=== PATIENT | male | born 1990 | race Caucasian/White ===

== ENCOUNTER 2016-12-17 20:30 | Emergency (ER) | payer MEDICAID ==
[2016-12-17 20:52] VITALS: BP 114/64
--- NOTE | 2016-12-17 21:26 | ED Physician Documentation ---
PD HPI BACK PAIN - Stated complaint Stated Complaint: BACK PAIN - Chief complaint Chief Complaint: Back Pain - History obtained from History obtained from: Patient - History of Present Illness Timing - onset: How many months ago (2) Timing - details: Abrupt onset, Intermittant Pain level now: 6 Location: Upper, Left Quality: Pain, Sharp Associated symptoms: No: Weakness, Numbness Improves with: Rest, Position Worsened by: Movement, Palpation Recently seen: Clinic (recently seen by dentist) - Additional information Additional information: while sliding on [place] 2 months ago, he came down hard while in sitting position, had sudden onset left upper back pain with popping sensation. Since then, he has had episodic left upper back pain, sometimes associated with focal swelling, and associated with tenderness to palpation and worsening with movement. He has not sought medical attention for this until this ED visit. Has taken ibuprofen 600mg without relief (this was recently prescribed by dentist) Review of Systems Cardiac: denies: Chest pain / pressure Respiratory: denies: Dyspnea, Cough GI: denies: Abdominal Pain Musculoskeletal: reports: Back pain PD PAST MEDICAL HISTORY - Past Medical History Past Medical History: No - Past Surgical History Past Surgical History: No - Present Medications Home Medications: Ambulatory Orders Medication Instructions Recorded Confirmed Cyclobenzaprine [Flexeril] 10 mg PO TID PRN #20 tablet 12/17/16 HYDROcod/ACETAM 5/325 [[place] 5/325] 1 - 2 ea PO Q6H PRN #15 tablet 12/17/16 Ibuprofen [Motrin] 600 mg PO Q8HR PRN 12/17/16 12/17/16 - Allergies Allergies/Adverse Reactions: Allergies Allergy/AdvReac Type Severity Reaction Status Date / Time Penicillins Allergy Edema Verified 12/17/16 20:53 - Social History Does the pt smoke?: Yes Smoking Status: Current every day smoker Does the pt drink ETOH?: No Does the pt have substance abuse?: Yes Substance Use and Type: Marijuana - Immunizations Immunizations are current?: Yes - POLST Patient has POLST: No PD ED PE NORMAL - Vitals Vital signs reviewed: Yes - General General: Alert and oriented X 3, No acute distress, Well developed/nourished - Neck Neck: No bony TTP - Cardiac Cardiac: RRR, No murmur - Respiratory Respiratory: No respiratory distress, Clear bilaterally - Back Back: No spinal TTP PD ED PE EXPANDED - Back Back visual: 1 - swelling (subtle fullness), tenderness Results - Vitals Vitals: Vital Signs - 24 hr 12/17/16 20:49 Temperature 36.3 C L Heart Rate 60 Respiratory 16 Rate Blood Pressure 114/64 O2 Saturation 100 Oxygen O2 Source Room air - Rads (name of study) left ribs xray with PA chest Radiology: Prelim report reviewed, See rad report PD MEDICAL DECISION MAKING - ED course Complexity details: reviewed results, re-evaluated patient, considered differential, d/w patient Departure - Departure Disposition: 01 Home, Self Care Clinical Impression: Back pain Condition: Good Instructions: ED Neck Back Pain General Follow-Up: [facility] [Provider Group] [facility] [Provider Group] Prescriptions: Cyclobenzaprine [Flexeril] 10 mg PO TID PRN #20 tablet PRN Reason: Spasms HYDROcod/ACETAM 5/325 [[place] 5/325] 1 - 2 ea PO Q6H PRN #15 tablet PRN Reason: Pain Discharge Date/Time: 12/17/16 23:26
[2016-12-17] MEDS ORDERED: HYDROcod/ACETAM 5/325 MG TABLET PO STA (21:39)
[2016-12-17] MEDS ORDERED: CYCLOBENZAPRINE 10 MG TABLET PO STA (21:40)
[2016-12-17] MEDS ORDERED: HYDROcod/ACETAM 5/325 MG TABLET ONE (21:48)
[2016-12-17] MEDS ORDERED: CYCLOBENZAPRINE 10 MG TABLET PO ONE (21:48)
--- NOTE | 2016-12-17 22:30 | XRAY Preliminary Report ---
Exam: XR Ribs w/PA Chest LT IMPRESSION: Normal chest and rib radiography. [facility] SITE ID: [id number]
--- NOTE | 2016-12-17 22:32 | XRAY Report ---
EXAM: LEFT RIB RADIOGRAPHY EXAM DATE: 12/17/2016 09:59 PM. CLINICAL HISTORY: Left posterior thoracic pain. COMPARISON: None. TECHNIQUE: 1 view of the chest and 2 views of the ribs. FINDINGS: Bones: Normal. No fracture or bone lesion. Lungs: No focal opacities. No pneumothorax. No pleural effusions. Mediastinum: Heart and mediastinal contours are unremarkable. Other: None. IMPRESSION: Normal chest and rib radiography. [facility] Referring Provider Line: [phone] SITE ID: [id number]
== END 2016-12-17 23:26 | disposition home or self-care (01) ==
LOC: ED 20:30
DX: M54.6 Pain in thoracic spine (principal); F17.200 Nicotine dependence, unspecified, uncomplicated
CPT/HCPCS: 71101; 99283; A9270

== ENCOUNTER 2017-02-24 14:13 | Outpatient (CLI) | payer MEDICAID ==
[2017-02-24 19:08] LABS: BASOPHILS % (AUTO) 0.3 %; EOSINOPHILS % (AUTO) 0.1 %; HCT - HEMATOCRIT 43.5 % (42.0-52.0); HGB - HEMOGLOBIN 14.3 g/dL (14.0-18.0); LYMPHOCYTES # (AUTO) 1.7 10^3/uL (1.5-3.5); LYMPHOCYTES % (AUTO) 26.8 %; MEAN CORPUSCULAR HEMOGLOBIN 28.9 pg (27.0-31.0); MEAN CORPUSCULAR HGB CONC 32.8 g/dL (32.0-36.0); MEAN CORPUSCULAR VOLUME 88.2 fL (80.0-94.0); MONOCYTES # (AUTO) 0.3 10^3/uL (0.0-1.0); MONOCYTES % (AUTO) 5.1 %; NEUTROPHILS # (AUTO) 4.3 10^3/uL (1.5-6.6); NEUTROPHILS % (AUTO) 67.7 %; NUCLEATED RED BLOOD CELLS AUTO 0.1 /100WBC; RED BLOOD COUNT 4.93 10^6/uL (4.70-6.10); RED CELL DISTRIBUTION WIDTH 13.2 % (12.0-15.0); UNCORRECTED WHITE BLOOD COUNT 6.3 x10^3/uL; WHITE BLOOD COUNT 6.3 x10^3/uL (4.8-10.8)
[2017-02-24 19:51] LABS: BILIRUBIN,TOTAL 1.3 mg/dL (0.2-1.0); BUN - BLOOD UREA NITROGEN 13 mg/dL (6-20); CALCIUM 9.2 mg/dL (8.5-10.3); CARBON DIOXIDE - CO2 26 mmol/L (21-32); CHLORIDE 103 mmol/L (101-111); CREATININE 0.9 mg/dL (0.6-1.2); GFR - MDRD 104 (>89); GLUCOSE 88 mg/dL (70-100); POTASSIUM 3.8 mmol/L (3.5-5.0); SODIUM 138 mmol/L (135-145); TOTAL PROTEIN 7.4 g/dL (6.7-8.2)
[2017-02-24 19:52] LABS: ALBUMIN/GLOBULIN RATIO 1.7 (1.0-2.2); CHOL/HDL RATIO 3.7 (<5.0); CHOLESTEROL 163 mg/dL; HDL CHOLESTEROL 44 mg/dL; LDL/HDL RATIO 2.3 (<3.6); TRIGLYCERIDES 96 mg/dL; VLDL CHOLESTEROL 19 mg/dL
== END 2017-02-24 14:14 | disposition home or self-care (01) ==
LOC: LAB.N 14:13
PROVIDERS: ATTEND Nurse Practitioner Gerontology
DX: Z13.9 Encounter for screening, unspecified (principal); Z11.3 Encounter for screening for infections with a predominantly sexual mode of transmission
CPT/HCPCS: 36415; 80053; 80061; 84443; 85025; 86780; 86803; 87389; 87491; 87591

== ENCOUNTER 2017-02-24 17:34 | Emergency (ER) | payer MEDICAID ==
--- NOTE | 2017-02-24 18:32 | ED Physician Documentation ---
PD HPI UPPER EXT INJURY - Stated complaint Stated Complaint: HAND INJURY - Chief complaint Chief Complaint: Trauma Ext - History obtained from History obtained from: Patient - History of Present Illness Location: Other (Right-handed gentleman punched a wooden beam earlier today because he was upset at something and has pain over the third MCP of the right hand. No other injuries.) Review of Systems Constitutional: reports: Reviewed and negative Cardiac: reports: Reviewed and negative Respiratory: reports: Reviewed and negative PD PAST MEDICAL HISTORY - Past Surgical History Past Surgical History: No - Present Medications Home Medications: Ambulatory Orders Medication Instructions Recorded Confirmed Cyclobenzaprine [Flexeril] 10 mg PO TID PRN #20 tablet 12/17/16 02/24/17 HYDROcod/ACETAM 5/325 [[place] 5/325] 1 - 2 ea PO Q6H PRN #15 tablet 12/17/16 Ibuprofen [Motrin] 600 mg PO Q8HR PRN 12/17/16 02/24/17 HYDROcod/ACETAM 5/325 [[place] 5/325] 1 - 2 ea PO Q6H PRN #10 tablet 02/24/17 - Allergies Allergies/Adverse Reactions: Allergies Allergy/AdvReac Type Severity Reaction Status Date / Time Penicillins Allergy Edema Verified 12/17/16 20:53 - Social History Does the pt smoke?: Yes Smoking Status: Current every day smoker Does the pt drink ETOH?: No Does the pt have substance abuse?: Yes - Immunizations Immunizations are current?: Yes - POLST Patient has POLST: No PD ED PE NORMAL - Vitals Vital signs reviewed: Yes - General General: Alert and oriented X 3, No acute distress - Extremities Extremities: Other (Tenderness and swelling of the right hand over the third MCP with limited range of motion of the third digit but no deformity. Normal neurovascular status at the tips of all the fingers.) - Neuro Neuro: Alert and oriented X 3, Normal speech Results - Vitals Vitals: Vital Signs - 24 hr 02/24/17 02/24/17 18:01 18:38 Temperature 36.4 C L Heart Rate 80 80 Respiratory 18 18 Rate Blood Pressure 136/73 H 119/62 O2 Saturation 100 10 L Oxygen O2 Source Room air - Rads (name of study) 3v R hand Radiology: EMP read contemporaneously (STS no frx) Departure - Departure Disposition: 01 Home, Self Care Clinical Impression: Contusion of right hand Qualifiers: Encounter type: initial encounter Qualified Code(s): S60.221A - Contusion of right hand, initial encounter Condition: Good Record reviewed to determine appropriate education?: Yes Instructions: ED Contusion Hand Prescriptions: HYDROcod/ACETAM 5/325 [[place] 5/325] 1 - 2 ea PO Q6H PRN #10 tablet PRN Reason: Pain Comments: Call your doctor to arrange a follow-up appointment, make the next available appointment. In the interim, return anytime if worse or if new symptoms develop. Your blood pressure was elevated today on check into the emergency department. This does not mean that you have hypertension, it is a common phenomenon to come to the emergency department and have elevated blood pressure. I recommend that you see your primary care physician within the week to have it rechecked when you are feeling better. Discharge Date/Time: 02/24/17 18:41
--- NOTE | 2017-02-24 18:38 | XRAY Preliminary Report ---
Exam: XR HAND 3 VIEW RT IMPRESSION: 1. Marked dorsal right hand swelling centered at the MCP joint. No radiopaque foreign bodies. 2. Normal alignment. No fracture. [facility] SITE ID: [id number]
[2017-02-24 18:39] VITALS: BP 119/62
--- NOTE | 2017-02-24 19:06 | XRAY Report ---
EXAM: RIGHT HAND RADIOGRAPHY EXAM DATE: 02/24/2017 06:13 PM. CLINICAL HISTORY: Pain. COMPARISON: None. TECHNIQUE: 3 views. FINDINGS: Bones: Normal. No fractures or bone lesions. Joints: Normal. No subluxations. Soft Tissues: Marked dorsal right hand swelling centered at the MCP joints. IMPRESSION: 1. Marked dorsal right hand swelling centered at the MCP joint. No radiopaque foreign bodies. 2. Normal alignment. No fracture. [facility] Referring Provider Line: [phone] SITE ID: [id number]
== END 2017-02-24 18:41 | disposition home or self-care (01) ==
LOC: ED 17:34
DX: S60.221A Contusion of right hand, initial encounter (principal); W22.8XXA Striking against or struck by other objects, initial encounter; F17.200 Nicotine dependence, unspecified, uncomplicated; R03.0 Elevated blood-pressure reading, without diagnosis of hypertension; Z13.9 Encounter for screening, unspecified; Z11.3 Encounter for screening for infections with a predominantly sexual mode of transmission
CPT/HCPCS: 36415; 80053; 80061; 84443; 85025; 86780; 86803; 87389; 87491; 87591; 99283

== ENCOUNTER 2017-06-18 14:00 | Emergency (ER) | payer MEDICAID ==
[2017-06-18 14:18] VITALS: BP 116/56
--- NOTE | 2017-06-18 14:41 | XRAY Report ---
EXAM: RIGHT HAND RADIOGRAPHY EXAM DATE: 06/18/2017 02:28 PM. CLINICAL HISTORY: Right hand injury. COMPARISON: 02/24/2017. TECHNIQUE: 3 views. FINDINGS: Bones: Normal. No fractures or bone lesions. Joints: Normal. No subluxations. Soft Tissues: Normal. No soft tissue swelling. IMPRESSION: Normal hand radiography. [facility] Referring Provider Line: [phone] SITE ID: [id number]
--- NOTE | 2017-06-18 14:57 | ED Physician Documentation ---
PD HPI UPPER EXT INJURY - Stated complaint Stated Complaint: R HAND INJ - Chief complaint Chief Complaint: Ext Problem - History obtained from History obtained from: Patient - History of Present Illness Location: Right (Punching wooden boards 5 days ago trying to break thumb and has persistent pain in the area of the third and fourth metacarpals. No other injury.) Review of Systems Constitutional: reports: Reviewed and negative Nose: reports: Reviewed and negative Throat: reports: Reviewed and negative PD PAST MEDICAL HISTORY - Past Medical History Past Medical History: No - Past Surgical History Past Surgical History: No - Present Medications Home Medications: Ambulatory Orders Medication Instructions Recorded Confirmed HYDROcod/ACETAM 5/325 [[place] 5/325] 1 - 2 ea PO Q6H PRN #10 tablet 06/18/17 - Allergies Allergies/Adverse Reactions: Allergies Allergy/AdvReac Type Severity Reaction Status Date / Time Penicillins Allergy Edema Verified 12/17/16 20:53 - Social History Does the pt smoke?: Yes Smoking Status: Current every day smoker Does the pt drink ETOH?: No Does the pt have substance abuse?: Yes - Immunizations Immunizations are current?: Yes - POLST Patient has POLST: No PD ED PE NORMAL - Vitals Vital signs reviewed: Yes - General General: Alert and oriented X 3, No acute distress - Extremities Extremities: Other (Swollen and tender over the right hand especially the third metacarpal head, but good range of motion. NVI in all the digits.) - Neuro Neuro: Alert and oriented X 3, Normal speech Results - Vitals Vitals: Vital Signs - 24 hr 06/18/17 14:16 Temperature 36.6 C Heart Rate 85 Respiratory 16 Rate Blood Pressure 116/56 L O2 Saturation 98 Oxygen O2 Source Room air - Rads (name of study) 3v R hand Radiology: EMP read contemporaneously (NAD) Departure - Departure Disposition: 01 Home, Self Care Clinical Impression: Contusion of right hand Qualifiers: Encounter type: initial encounter Qualified Code(s): S60.221A - Contusion of right hand, initial encounter Condition: Good Record reviewed to determine appropriate education?: Yes Instructions: ED Contusion Hand Ch Prescriptions: HYDROcod/ACETAM 5/325 [[place] 5/325] 1 - 2 ea PO Q6H PRN #10 tablet PRN Reason: Pain Comments: Followup with your doctor in 1 week if not better.
== END 2017-06-18 15:19 | disposition home or self-care (01) ==
LOC: ED 14:00
DX: S60.221A Contusion of right hand, initial encounter (principal); W22.8XXA Striking against or struck by other objects, initial encounter; F17.200 Nicotine dependence, unspecified, uncomplicated
CPT/HCPCS: 99283

== ENCOUNTER 2017-06-23 11:46 | Emergency (ER) | payer OTHER, MEDICAID ==
[2017-06-23] MEDS ORDERED: HYDROcod/ACETAM 5/325 MG TABLET PO STA (12:17)
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
[2017-06-23 12:54] VITALS: BP 129/77
--- NOTE | 2017-06-23 13:06 | XRAY Preliminary Report ---
Exam: XR HAND 3 VIEW RT IMPRESSION: Persistent soft tissue swelling abutting the third metacarpal head without fracture, s ubluxation or radiopaque foreign body, nonspecific finding; and septic arthritis cannot be excluded b y the x-ray. [facility] SITE ID: [id number]
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
== END 2017-06-23 12:52 | disposition home or self-care (01) ==
LOC: ED 11:46
DX: S60.221A Contusion of right hand, initial encounter (principal); Y04.0XXA Assault by unarmed brawl or fight, initial encounter; F17.200 Nicotine dependence, unspecified, uncomplicated
CPT/HCPCS: 73130; 99282; 99283; A9270

== ENCOUNTER 2017-08-04 18:24 | Emergency (ER) | payer MEDICAID ==
--- NOTE | 2017-08-04 19:11 | XRAY Report ---
EXAM: RIGHT HAND RADIOGRAPHY EXAM DATE: 08/04/2017 07:00 PM. CLINICAL HISTORY: Right hand pain COMPARISON: None. TECHNIQUE: 3 views. FINDINGS: Bones: No fracture or focal bony lesion. Joints: No evidence of dislocation. Soft Tissues: No unexpected soft tissue findings. IMPRESSION: No evidence of fracture or dislocation. [facility] Referring Provider Line: [phone] SITE ID: [id number]
[2017-08-04] MEDS ORDERED: HYDROcod/ACETAM 5/325 MG TABLET PO STA (20:10)
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
[2017-08-04 20:21] VITALS: BP 119/75
== END 2017-08-04 20:25 | disposition home or self-care (01) ==
LOC: ED 18:24
DX: S63.91XA Sprain of unspecified part of right wrist and hand, initial encounter (principal); Y04.0XXA Assault by unarmed brawl or fight, initial encounter; F17.200 Nicotine dependence, unspecified, uncomplicated
CPT/HCPCS: 29125; 73130; 99283; A9270

== ENCOUNTER 2017-09-02 15:23 | Outpatient (CLI) | payer MEDICAID | END 2017-09-02 15:24 | LOC: LAB.N 15:23 | PROVIDERS: ATTEND Nurse Practitioner Gerontology | DX: M10.9 Gout, unspecified (principal) | CPT/HCPCS: 36415; 84550 ==

== ENCOUNTER 2017-12-11 20:00 | Emergency (ER) | payer MEDICAID ==
[2017-12-11 20:05] VITALS: BP 115/63
--- NOTE | 2017-12-11 20:18 | ED Physician Documentation ---
PD HPI LOWER EXT INJURY - Stated complaint Stated Complaint: R ANKLE PX/INJ - Chief complaint Chief Complaint: Ext Problem - History obtained from History obtained from: Patient - History of Present Illness PD HPI LOW EXT INJURY LOCATION: Right, Ankle (He hits the right medial malleolus on a bar while skateboarding a few days ago and has persistent pain there but is able to walk. No other injuries.) Review of Systems Constitutional: reports: Reviewed and negative Cardiac: reports: Reviewed and negative Respiratory: reports: Reviewed and negative PD PAST MEDICAL HISTORY - Past Surgical History Past Surgical History: No - Allergies Allergies/Adverse Reactions: Allergies Allergy/AdvReac Type Severity Reaction Status Date / Time Penicillins Allergy Edema Verified 12/11/17 20:05 - Social History Does the pt smoke?: Yes Smoking Status: Current every day smoker Does the pt drink ETOH?: Yes Does the pt have substance abuse?: Yes - Immunizations Immunizations are current?: Yes - POLST Patient has POLST: No PD ED PE NORMAL - Vitals Vital signs reviewed: Yes - General General: Alert and oriented X 3, No acute distress - Extremities Extremities: Other (The right ankle has a little abrasion just above the medial tenderness there with swelling but no deformity. No tenderness of the tib-fib above that and no foot tenderness.) - Neuro Neuro: Alert and oriented X 3, Normal speech Results - Vitals Vitals: Vital Signs - 24 hr 12/11/17 20:02 Temperature 37.2 C Heart Rate 82 Respiratory 16 Rate Blood Pressure 115/63 O2 Saturation 98 Oxygen O2 Source Room air PD MEDICAL DECISION MAKING - Sepsis Event Vital Signs: Vital Signs - 24 hr 12/11/17 20:02 Temperature 37.2 C Heart Rate 82 Respiratory 16 Rate Blood Pressure 115/63 O2 Saturation 98 Oxygen O2 Source Room air Departure - Departure Disposition: 01 Home, Self Care Clinical Impression: Contusion of right ankle Qualifiers: Encounter type: initial encounter Qualified Code(s): S90.01XA - Contusion of right ankle, initial encounter Condition: Good Record reviewed to determine appropriate education?: Yes Instructions: ED Contusion Foot Comments: Recheck with your doctor in a week or 2 if not better. Tylenol or ibuprofen as needed for pain.
--- NOTE | 2017-12-11 20:49 | XRAY Report ---
Reason: ankle inj Procedure Date: 12/11/2017 Accession Number: [id number] / [id number] Procedure: XR - Ankle 3 View RT CPT Code: FULL RESULT: EXAM: RIGHT ANKLE RADIOGRAPHY EXAM DATE: 12/11/2017 08:29 PM. CLINICAL HISTORY: Medial ankle pain since skateboarding injury 4 days ago. COMPARISON: None. TECHNIQUE: 3 views. FINDINGS: Bones: Normal. No fractures or bone lesions. Joints: Normal. No effusion. No subluxations. The ankle mortise is normally aligned. Soft Tissues: Medial soft tissue swelling. IMPRESSION: No bony abnormality. [facility]
== END 2017-12-11 20:50 | disposition home or self-care (01) ==
LOC: ED 20:00
DX: F17.200 Nicotine dependence, unspecified, uncomplicated (principal); S90.01XA Contusion of right ankle, initial encounter; S90.511A Abrasion, right ankle, initial encounter; W22.09XA Striking against other stationary object, initial encounter; Y93.51 Activity, roller skating (inline) and skateboarding
CPT/HCPCS: 99282

== ENCOUNTER 2018-03-05 21:28 | Emergency (ER) | payer MEDICAID ==
[2018-03-05 21:33] VITALS: BP 142/77
[2018-03-05] MEDS ORDERED: BENZONATATE 100 MG CAPSULE PO STA (21:39)
--- NOTE | 2018-03-05 21:43 | ED Physician Documentation ---
PD HPI URI - Stated complaint Stated Complaint: COUGH - Chief complaint Chief Complaint: Resp - History obtained from History obtained from: Patient - History of Present Illness Timing - onset: Other (He had an intermittently productive cough for about a month. He tried Shari-[place] and another [id number] without relief. Today he had a severe coughing episode and he had a lump on his abdomen that is now gone. From his description I presume it was abdominal wall muscle spasm.) Review of Systems Ten Systems: 10 systems reviewed and negative Constitutional: denies: Fever, Chills Nose: denies: Rhinorrhea / runny nose Cardiac: denies: Chest pain / pressure, Palpitations Respiratory: reports: Dyspnea, Cough GI: reports: Abdominal Pain (gone) PD PAST MEDICAL HISTORY - Past Surgical History Past Surgical History: No - Present Medications Home Medications: Ambulatory Orders Medication Instructions Recorded Confirmed Benzonatate [Tessalon Perle] 100 - 200 mg PO TID PRN #30 capsule 03/05/18 Hydrocodone/Chlorphen P-Stirex 5 ml PO BID PRN #90 ml 03/05/18 [Hydrocodone-Chlorphen ER Susp] - Allergies Allergies/Adverse Reactions: Allergies Allergy/AdvReac Type Severity Reaction Status Date / Time Penicillins Allergy Edema Verified 03/05/18 21:33 - Social History Does the pt smoke?: Yes Smoking Status: Current every day smoker Does the pt drink ETOH?: Yes Does the pt have substance abuse?: Yes - Immunizations Immunizations are current?: Yes - POLST Patient has POLST: No PD ED PE NORMAL - Vitals Vital signs reviewed: Yes - General General: Alert and oriented X 3, No acute distress - Neck Neck: Supple, no meningeal sign, No bony TTP - Cardiac Cardiac: RRR, No murmur - Respiratory Respiratory: No respiratory distress, Clear bilaterally - Abdomen Abdomen: Non tender - Extremities Extremities: No edema, No calf tenderness / cord - Neuro Neuro: Alert and oriented X 3, Normal speech - Psych Psych: Normal mood, Normal affect Results - Vitals Vitals: Vital Signs - 24 hr 03/05/18 21:30 Temperature 36.8 C Heart Rate 98 Respiratory 17 Rate Blood Pressure 142/77 H O2 Saturation 100 Oxygen O2 Source Room air - Rads (name of study) 2v chest xr Radiology: EMP read contemporaneously (normal) Departure - Departure Disposition: Home, Self Care Clinical Impression: Cough Condition: Good Record reviewed to determine appropriate education?: Yes Instructions: ED URI Viral Prescriptions: Benzonatate [Tessalon Perle] 100 - 200 mg PO TID PRN #30 capsule PRN Reason: Cough Hydrocodone/Chlorphen P-Stirex [Hydrocodone-Chlorphen ER Susp] 5 ml PO BID PRN #90 ml PRN Reason: Cough Comments: Call your doctor to arrange a follow-up appointment, make the next available appointment. In the interim, return anytime if worse or if new symptoms develop. Your blood pressure was elevated today on check into the emergency department. This does not mean that you have hypertension, it is a common phenomenon to come to the emergency department and have elevated blood pressure. I recommend that you see your primary care physician within the week to have it rechecked when you are feeling better. Discharge Date/Time: 03/05/18 21:56
--- NOTE | 2018-03-05 21:56 | XRAY Report ---
Reason: cough Procedure Date: 03/05/2018 Accession Number: [id number] / [id number] Procedure: XR - Chest 2 View X-Ray CPT Code: 12478 FULL RESULT: EXAM: CHEST RADIOGRAPHY EXAM DATE: 03/05/2018 09:52 PM. CLINICAL HISTORY: Nonproductive cough for 1 month. COMPARISON: Ribs with PA chest left 12/17/2016 9:44 PM. TECHNIQUE: 2 views. FINDINGS: Lungs/Pleura: No focal opacities evident. No pleural effusion. No pneumothorax. Normal volumes. Mediastinum: Heart and mediastinal contours are unremarkable. Other: None. IMPRESSION: Normal 2-view chest radiography. RADIA
--- NOTE | 2018-03-06 17:31 | ED Physician Documentation ---
ED Addendum - Addendum Addendum: 03/06/18 17:31 Took Call from pharmacy, cough syrup not covered. Arthritis changed to either guaifenesin with codeine or Robitussin-AC, 5 mL every 6 p.o. as needed cough 120 mL.
== END 2018-03-05 21:56 | disposition home or self-care (01) ==
LOC: ED 21:28
DX: R05 Cough (principal); R03.0 Elevated blood-pressure reading, without diagnosis of hypertension; F17.200 Nicotine dependence, unspecified, uncomplicated
CPT/HCPCS: 71046; 99283; A9270

== ENCOUNTER 2018-07-01 08:04 | Emergency (ER) | payer SELFPAY ==
[2018-07-01 08:30] VITALS: BP 116/68
[2018-07-01] MEDS ORDERED: DEXAMETHASONE 10 MG/ML VIAL PO STA (09:10)
--- NOTE | 2018-07-01 09:13 | ED Physician Documentation ---
PD HPI UPPER EXT INJURY - Stated complaint Stated Complaint: UPPER LEFT SIDE PX - Chief complaint Chief Complaint: Ext Problem - History obtained from History obtained from: Patient - History of Present Illness Location: Left, Arm Type of injury: Twist Where injury occurred: [place] Timing - onset: How many days ago (3) Timing - duration: Days (3) Timing - details: Abrupt onset, Still present Improved by: Rest, Immobilization Worsened by: Moving, Palpating Contributing factors: No: Anticoagulated Similar symptoms before: Diagnosis (back strain) Recently seen: Not recently seen - Additonal information Additional information: Previously well 27-year-old male went out and did some skateboarding on the half pipe and used his left arm grabbing onto the top of the half pipe and twisting and today he has excessive pain in his left arm extending into the axilla and down the medial surface of the arm and pain over the rhomboid and up into the neck. The patient has previously had an injury to this area of his back when [place]. About 2 years ago since that time he has periodically had a strain of this area. 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 Review of Systems Constitutional: denies: Fever Respiratory: denies: Cough GI: denies: Vomiting Skin: denies: Rash Musculoskeletal: reports: Neck pain, Back pain, Extremity pain Neurologic: denies: Generalized weakness, Focal weakness, Numbness PD PAST MEDICAL HISTORY - Past Medical History Cardiovascular: None Respiratory: None Neuro: None Endocrine/Autoimmune: None GI: None : None HEENT: None Psych: None Musculoskeletal: None Derm: None - Past Surgical History Past Surgical History: No - Present Medications Home Medications: Ambulatory Orders Medication Instructions Recorded Confirmed Hydrocodone/Acetaminophen 1 - 2 each PO Q6H PRN #14 tablet 07/01/18 [Hydrocodon-Acetaminophen 5-325] - Allergies Allergies/Adverse Reactions: Allergies Allergy/AdvReac Type Severity Reaction Status Date / Time Penicillins Allergy Edema Verified 07/01/18 08:30 - Social History Does the pt smoke?: Yes Smoking Status: Current some day smoker Does the pt drink ETOH?: Yes Does the pt have substance abuse?: Yes Substance Use and Type: Marijuana - Immunizations Immunizations are current?: Yes - POLST Patient has POLST: No PD ED PE NORMAL - Vitals Vital signs reviewed: Yes (normal ) - General General: Alert and oriented X 3, No acute distress, Well developed/nourished - HEENT HEENT: Atraumatic, PERRL, EOMI - Neck Neck: Supple, no meningeal sign, No bony TTP, Other (There is tenderness to the paraspinous muscles to the cervical spine on the left ) - Respiratory Respiratory: No respiratory distress, Other (There is tenderness to the chest wall on the left adjacent to the axilla. ) - Back Back: No CVA TTP, No spinal TTP, Other (There is tenderness over the rhomboid on the left ) - Derm Derm: Normal color, Warm and dry, No rash - Extremities Extremities: No deformity, No edema - Neuro Neuro: Alert and oriented X 3, No motor deficit, No sensory deficit, Normal speech Eye Opening: Spontaneous Motor: Obeys Commands Verbal: Oriented GCS Score: 15 - Psych Psych: Normal mood, Normal affect Results - Vitals Vitals: Vital Signs - 24 hr 07/01/18 08:28 Temperature 36.8 C Heart Rate 88 Respiratory 16 Rate Blood Pressure 116/68 O2 Saturation 99 Oxygen O2 Source Room air PD MEDICAL DECISION MAKING - ED course Complexity details: reviewed old records, considered differential, d/w patient ED course: 27-year-old male with myofascial strain to his chest wall and left upper extremity is administered dexamethasone will provide a short course of narcotic pain reliever as well. Departure - Departure Disposition: 01 Home, Self Care Clinical Impression: Acute thoracic myofascial strain Qualifiers: Encounter type: initial encounter Qualified Code(s): S29.019A - Strain of muscle and tendon of unspecified wall of thorax, initial encounter Condition: Stable Instructions: ED Sprain Strain Neck, ED Sprain Thoracic Spine Follow-Up: [facility] [Provider Group] Prescriptions: Hydrocodone/Acetaminophen [Hydrocodon-Acetaminophen 5-325] 1 - 2 each PO Q6H PRN #14 tablet PRN Reason: pain
== END 2018-07-01 09:27 | disposition home or self-care (01) ==
LOC: ED 08:04
DX: S29.012A Strain of muscle and tendon of back wall of thorax, initial encounter (principal); Y93.51 Activity, roller skating (inline) and skateboarding; Y92.838 Other recreation area as the place of occurrence of the external cause
CPT/HCPCS: 99281; 99283

== ENCOUNTER 2019-02-28 11:47 | Emergency (ER) | payer SELFPAY ==
[2019-02-28 11:55] VITALS: BP 143/83
[2019-02-28] MEDS ORDERED: HYDROcod/ACETAM 5/325 MG TABLET PO STA (13:36)
--- NOTE | 2019-02-28 13:39 | ED Physician Documentation ---
PD HPI BACK INJURY - Stated complaint Stated Complaint: BACK PX - History obtained from History obtained from: Patient - History of Present Illness Location: Left, Upper Type of injury: Other (A few years ago he was in a sledding accident and ever since has had intermittent left upper back pain. It bothers him about twice a year. This time there was no inciting issue. He says it is in the same place as usual. It hurts to bend and hurts to reach across his chest with his left arm.) Review of Systems Constitutional: denies: Fever, Chills Throat: reports: Reviewed and negative Cardiac: reports: Reviewed and negative Respiratory: reports: Reviewed and negative PD PAST MEDICAL HISTORY - Past Medical History Cardiovascular: None Respiratory: None Neuro: None Endocrine/Autoimmune: None GI: None : None HEENT: None Psych: None Musculoskeletal: None Derm: None - Past Surgical History Past Surgical History: No - Present Medications Home Medications: Ambulatory Orders Medication Instructions Recorded Confirmed Hydrocodone/Acetaminophen 1 - 2 each PO Q6H PRN #14 tablet 07/01/18 [Hydrocodon-Acetaminophen 5-325] Hydrocodone/Acetaminophen 1 - 2 each PO Q6H PRN #14 tablet 02/28/19 [Hydrocodon-Acetaminophen 5-325] - Allergies Allergies/Adverse Reactions: Allergies Allergy/AdvReac Type Severity Reaction Status Date / Time Penicillins Allergy Edema Verified 07/01/18 08:30 - Social History Does the pt smoke?: Yes Smoking Status: Current every day smoker Does the pt drink ETOH?: Yes Does the pt have substance abuse?: Yes - Immunizations Immunizations are current?: Yes - POLST Patient has POLST: No PD ED PE NORMAL - Vitals Vital signs reviewed: Yes - General General: Alert and oriented X 3, No acute distress - Cardiac Cardiac: RRR, No murmur - Respiratory Respiratory: No respiratory distress, Clear bilaterally - Abdomen Abdomen: Non tender - Back Back: Other (There is no midline spinal tenderness. He has exquisite tenderness of the left rhomboid muscle and some limited range of motion of the left arm due to same) - Neuro Neuro: Alert and oriented X 3, No motor deficit, No sensory deficit, Normal speech Results - Vitals Vitals: Vital Signs - 24 hr 02/28/19 11:54 Temperature 37 C Heart Rate 67 Respiratory 18 Rate Blood Pressure 143/83 H O2 Saturation 99 Oxygen O2 Source Room air PD MEDICAL DECISION MAKING - ED course ED course: This is a young man with recurrent left rhomboid spasm. Hydrocodone has been helpful in the past and he was given a prescription for this. Advised to follow-up with his primary care physician for consideration for physical therapy. Departure - Departure Disposition: 01 Home, Self Care Clinical Impression: Spasm of thoracic back muscle Condition: Good Record reviewed to determine appropriate education?: Yes Instructions: ED Spasm Back No Trauma Follow-Up: [facility] [Provider Group] [facility] [Provider Group] Prescriptions: Hydrocodone/Acetaminophen [Hydrocodon-Acetaminophen 5-325] 1 - 2 each PO Q6H PRN #14 tablet PRN Reason: pain Comments: As discussed, I think would be helpful for you to follow-up with her primary care physician to consider a referral for physical therapy. Otherwise heat and gentle stretching. Return for new worsening symptoms. Do not drink or drive while taking narcotic pain medication. Note that many narcotic pain relievers also contain Tylenol/acetaminophen. Please ensure that your total dose of acetaminophen from all sources does not exceed 3 g (3000 mg) per day. You may get constipated while on this medication. Take a stool softener such as Colace twice a day while you are on it. Also add an dzfr-blc-cbnohns laxative such as senna or MiraLAX on any day that you do not have a bowel movement. If you received a narcotic pain medication or sedative while in the emergency department, do not drive for the next 24 hours.
== END 2019-02-28 13:53 | disposition home or self-care (01) ==
LOC: ED 11:47
DX: M62.830 Muscle spasm of back (principal); M54.6 Pain in thoracic spine; F17.200 Nicotine dependence, unspecified, uncomplicated
CPT/HCPCS: 99282; 99284; A9270

== ENCOUNTER 2019-07-13 13:31 | Emergency (ER) | payer SELFPAY ==
--- NOTE | 2019-07-13 13:44 | ED Physician Documentation ---
PD HPI URI - Stated complaint Stated Complaint: COUGH,HEADACHE,BODY ACHES - Chief complaint Chief Complaint: General - History obtained from History obtained from: Patient - History of Present Illness Timing - onset: How many weeks ago (1) Timing duration: Weeks (1) Timing details: Abrupt onset, Still present (has had dry cough for a week, that is now productive green/brown sputum and he is feeling feverish the past day.) Associated symptoms: Fever, Productive cough. No: Hemoptysis, Dyspnea, NVD Similar symptoms before: Has not had sx before Recently seen: Not recently seen Review of Systems Constitutional: reports: Fever, Chills Nose: reports: Congestion. denies: Rhinorrhea / runny nose Throat: denies: Sore throat Cardiac: denies: Chest pain / pressure Respiratory: reports: Dyspnea, Cough. denies: Wheezing GI: denies: Nausea, Vomiting, Diarrhea Neurologic: denies: Altered mental status, Headache PD PAST MEDICAL HISTORY - Past Medical History Cardiovascular: None Respiratory: None Neuro: None Endocrine/Autoimmune: None GI: None : None HEENT: None Psych: None Musculoskeletal: None Derm: None - Past Surgical History Past Surgical History: No - Present Medications Home Medications: Ambulatory Orders Medication Instructions Recorded Confirmed Albuterol Sulfate [Albuterol 2 puffs IH QID #1 hfa.aer.ad 07/13/19 Sulfate Hfa] Benzonatate [Tessalon Perle] 100 mg PO TID PRN #25 capsule 07/13/19 Doxycycline Monohydrate 100 mg PO BID #14 tablet 07/13/19 dexAMETHasone [Decadron] 4 mg PO DAILY #5 tablet 07/13/19 - Allergies Allergies/Adverse Reactions: Allergies Allergy/AdvReac Type Severity Reaction Status Date / Time Penicillins Allergy Edema Verified 07/13/19 13:35 - Social History Does the pt smoke?: Yes Smoking Status: Current every day smoker Does the pt drink ETOH?: Yes Does the pt have substance abuse?: Yes - Immunizations Immunizations are current?: Yes - POLST Patient has POLST: No PD ED PE NORMAL - Vitals Vital signs reviewed: Yes - General General: Alert and oriented X 3, No acute distress, Well developed/nourished - HEENT HEENT: Ears normal, Moist mucous membranes, Pharynx benign - Neck Neck: Supple, no meningeal sign, No adenopathy - Cardiac Cardiac: RRR, No murmur - Respiratory Respiratory: No respiratory distress. No: Clear bilaterally (some exp wheezing and has some focal increased wheeze and faint congestion right mid lung field. ) Results - Vitals Vitals: Vital Signs - 24 hr 07/13/19 07/13/19 07/13/19 13:35 14:56 15:09 Temperature 37.8 C H Heart Rate 96 88 95 Respiratory 18 12 16 Rate Blood Pressure 115/45 L 104/61 O2 Saturation 96 99 Oxygen O2 Source Room air - Rads (name of study) chest gordy Radiology: Prelim report reviewed (focal opacity right lower lobe may be early pneumonia), See rad report Departure - Departure Disposition: 01 Home, Self Care Clinical Impression: Acute bronchitis Qualifiers: Bronchitis organism: unspecified organism Qualified Code(s): J20.9 - Acute bronchitis, unspecified Upper respiratory infection Qualifiers: URI type: unspecified URI Qualified Code(s): J06.9 - Acute upper respiratory infection, unspecified Pneumonia Qualifiers: Pneumonia type: due to unspecified organism Laterality: right Lung location: lower lobe of lung Qualified Code(s): J18.9 - Pneumonia, unspecified organism Condition: Stable Record reviewed to determine appropriate education?: Yes Instructions: ED Upper Resp Infec Abx Tx Prescriptions: Albuterol Sulfate [Albuterol Sulfate Hfa] 2 puffs IH QID #1 hfa.aer.ad Benzonatate [Tessalon Perle] 100 mg PO TID PRN #25 capsule PRN Reason: Cough dexAMETHasone [Decadron] 4 mg PO DAILY #5 tablet Doxycycline Monohydrate 100 mg PO BID #14 tablet Comments: Use the albuterol inhaler 2 puffs or 3 puffs 4 times a day for the next several days to week. Extra times if needed for cough and wheeziness. Use benzonatate as needed for cough suppression. Tylenol or ibuprofen for fevers or pains. Your x-ray appears clear without any signs of pneumonia. It sounds like there may been some viral illness or environmental allergies initially but now sounding like a bacterial bronchitis brewing now. For that we will use the doxycycline antibiotic twice daily for a week and Decadron steroid for inflammation daily for 5 more days. I would anticipate improvement over the next several days. Forms: Activity restrictions Discharge Date/Time: 07/13/19 15:12
[2019-07-13] MEDS ORDERED: guaiFENesin/CODEINE 5 ML UDC PO STA (14:12)
[2019-07-13] MEDS ORDERED: BENZONATATE 100 MG CAPSULE PO STA (14:12)
[2019-07-13] MEDS ORDERED: IBUPROFEN 600 MG TABLET PO STA (14:12)
[2019-07-13] MEDS: ALBUTEROL 1 PUFF INH STA ×2 (14:37→14:44)
[2019-07-13] MEDS ORDERED: DOXYCYCLINE 100 MG TABLET PO STA (15:00)
--- NOTE | 2019-07-13 15:13 | XRAY Report ---
Reason: cough and chest tightness Procedure Date: 07/13/2019 Accession Number: [id number] / [id number] Procedure: XR - Chest 1 View X-Ray CPT Code: 17219 Final Report FULL RESULT: EXAM: CHEST RADIOGRAPHY EXAM DATE: 07/13/2019 02:25 PM. CLINICAL HISTORY: Cough and chest tightness. COMPARISON: CHEST 2 VIEW 03/05/2018 9:42 PM. TECHNIQUE: 1 view. FINDINGS: Lungs/Pleura: Focal opacity in the right lower lobe base. Bronchial cuffing. No effusions. Mediastinum: Within exam limitations, the cardiomediastinal contour is normal. Other: None. IMPRESSION: 1. Focal opacity in the right lower lobe base may represent developing pneumonia. Recommend follow-up to resolution. 2. Bronchial cuffing may be due to infectious or inflammatory bronchitis/bronchiolitis RADIA
[2019-07-13 15:29] VITALS: BP 104/61
== END 2019-07-13 15:12 | disposition home or self-care (01) ==
LOC: ED 13:31
DX: J20.9 Acute bronchitis, unspecified (principal); J06.9 Acute upper respiratory infection, unspecified; J18.9 Pneumonia, unspecified organism; F17.200 Nicotine dependence, unspecified, uncomplicated
CPT/HCPCS: 71045; 94640; 99283; A9270

== ENCOUNTER 2020-01-20 15:31 | Emergency (ER) | payer SELFPAY ==
[2020-01-20] MEDS ORDERED: ONDANSETRON ODT 4 MG TABLET TL STA (15:47)
[2020-01-20] MEDS ORDERED: cloNIDine 0.1 MG TABLET PO STA (15:48)
--- NOTE | 2020-01-20 16:06 | ED Physician Documentation ---
History of Present Illness - Stated complaint Stated Complaint: WITHDRAWAL - Chief complaint Chief Complaint: General - History obtained from History obtained from: Patient, Family - History of Present Illness Timing: How many days ago (3) Pain level max: 0 Pain level now: 0 - Additonal information Additional information: 29-year-old male presents to the emergency department stating that he is withdrawing from fentanyl and Percocet. Has been using daily for the last 6 months. Last use was 3 days ago. He states he feels achy and cold. Has had nausea and vomiting as well as diarrhea. No fevers. No medications that he is on at home. Nothing makes it better or worse. Patient states that he is interested in rehab. He is requesting to speak with social work. Review of Systems Constitutional: denies: Fever, Chills Respiratory: denies: Cough GI: reports: Nausea, Vomiting, Diarrhea : denies: Dysuria Skin: denies: Rash Musculoskeletal: denies: Neck pain, Back pain Neurologic: denies: Headache Psychiatric: denies: Suicidal, Homicidal PD PAST MEDICAL HISTORY - Past Medical History Past Medical History: Yes Cardiovascular: None Respiratory: None Neuro: None Endocrine/Autoimmune: None GI: None : None HEENT: None Psych: None Musculoskeletal: None Derm: None Other Past Medical History: opiod addiction - Past Surgical History Past Surgical History: No - Present Medications Home Medications: Ambulatory Orders Medication Instructions Recorded Confirmed Albuterol Sulfate [Albuterol 2 puffs IH QID #1 hfa.aer.ad 07/13/19 Sulfate Hfa] Benzonatate [Tessalon Perle] 100 mg PO TID PRN #25 capsule 07/13/19 Doxycycline Monohydrate 100 mg PO BID #14 tablet 07/13/19 dexAMETHasone [Decadron] 4 mg PO DAILY #5 tablet 07/13/19 Ondansetron Odt [Zofran] 4 mg TL Q6H PRN #10 tablet 01/20/20 cloNIDine [Catapres] 0.1 mg PO TID PRN #10 tablet 01/20/20 - Allergies Allergies/Adverse Reactions: Allergies Allergy/AdvReac Type Severity Reaction Status Date / Time Penicillins Allergy Edema Verified 01/20/20 15:38 - Social History Does the pt smoke?: Yes Smoking Status: Current every day smoker Does the pt drink ETOH?: Yes Does the pt have substance abuse?: Yes Substance Use and Type: Prescription Pills - Immunizations Immunizations are current?: Yes - POLST Patient has POLST: No PD ED PE NORMAL - Vitals Vital signs reviewed: Yes - General General: Alert and oriented X 3, No acute distress - HEENT HEENT: Atraumatic, PERRL, Moist mucous membranes - Neck Neck: Supple, no meningeal sign - Cardiac Cardiac: RRR - Respiratory Respiratory: No respiratory distress, Clear bilaterally - Abdomen Abdomen: Soft, Non tender, Non distended - Derm Derm: Warm and dry - Extremities Extremities: No edema - Neuro Neuro: Alert and oriented X 3 - Psych Psych: Normal mood, Normal affect Results - Vitals Vitals: Vital Signs - 24 hr 01/20/20 01/20/20 15:35 17:52 Temperature 37.1 C 37.1 C Heart Rate 76 50 L Respiratory 17 20 Rate Blood Pressure 135/66 H 126/66 O2 Saturation 97 97 Oxygen O2 Source Room air - Labs Labs: Laboratory Tests 01/20/20 01/20/20 01/20/20 16:09 16:09 16:09 WBC 8.7 RBC 4.74 Hgb 13.3 L Hct 38.7 L MCV 81.6 MCH 28.1 MCHC 34.4 RDW 12.5 Plt Count 220 MPV 9.2 Neut # (Auto) 7.2 H Lymph # (Auto) 1.0 L [place] # (Auto) 0.4 Eos # (Auto) 0.0 Baso # (Auto) 0.0 Absolute Nucleated RBC 0.00 Nucleated RBC % 0.0 Sodium 137 Potassium 3.4 L Chloride 99 L Carbon Dioxide 25 Anion Gap 13.0 BUN 11 Creatinine 0.9 Estimated GFR (MDRD) 101 Glucose 123 H Calcium 9.2 Total Bilirubin 1.1 H AST 17 ALT 29 Alkaline Phosphatase 25 L Total Protein 7.0 Albumin 4.4 Globulin 2.6 Albumin/Globulin Ratio 1.7 Lipase 34 TSH 0.11 L Salicylates < 6.0 Acetaminophen < 10 L Ethyl Alcohol < 5.0 PD MEDICAL DECISION MAKING - ED course Complexity details: reviewed results, re-evaluated patient, considered differential, d/w patient, d/w family ED course: Patient with narcotic withdrawal. Feels better after buprenorphine, Zofran, clonidine. I will prescribe Zofran for home. His sister accompanied him to the emergency department. Social work was consulted and resources given. Also given information about [facility], has an appointment now on Friday. Patient is well-appearing, nontoxic. No significant lab abnormalities. We will continue supportive care at home. Patient and family counseled regarding signs and symptoms for which I believe and urgent re-evaluation would be necessary. Patient with good understanding of and agreement to plan and is comfortable going home at this time This document was made in part using voice recognition software. While efforts are made to proofread this document, sound alike and grammatical errors may occur. Departure - Departure Disposition: Home, Self Care Clinical Impression: Narcotic withdrawal Condition: Good Instructions: ED Narcotic Abuse Follow-Up: your,doctor on friday as scheduled [Other] Prescriptions: cloNIDine [Catapres] 0.1 mg PO TID PRN #10 tablet PRN Reason: narcotic withdrawal Ondansetron Odt [Zofran] 4 mg TL Q6H PRN #10 tablet PRN Reason: Nausea / Vomiting Comments: Follow-up with [facility] as scheduled on Friday. Return if you worsen. Drink plenty of fluids and rest this weekend. Crisis Line and is available to talk to someone [email or web address] is also available to chat with someone online if you prefer. There are also many resources on this website and apps for your phone to help with your mental health You can also text the word START to [phone] to chat with someome via text. Discharge Date/Time: 01/20/20 18:21
[2020-01-20 16:17] LABS: BASOPHILS % (AUTO) 0.2 %; HGB - HEMOGLOBIN 13.3 g/dL (14.0-18.0); LYMPHOCYTES % (AUTO) 11.8 %; MEAN CORPUSCULAR HEMOGLOBIN 28.1 pg (27.0-31.0); MEAN CORPUSCULAR HGB CONC 34.4 g/dL (32.0-36.0); MEAN CORPUSCULAR VOLUME 81.6 fL (80.0-94.0); MEAN PLATELET VOLUME 9.2 fL (7.4-11.4); MONOCYTES # (AUTO) 0.4 10^3/uL (0.0-1.0); NEUTROPHILS # (AUTO) 7.2 10^3/uL (1.5-6.6); NEUTROPHILS % (AUTO) 82.7 %; PLT - PLATELET COUNT 220 10^3/uL (130-450); RED BLOOD COUNT 4.74 10^6/uL (4.70-6.10); RED CELL DISTRIBUTION WIDTH 12.5 % (12.0-15.0); WHITE BLOOD COUNT 8.7 x10^3/uL (4.8-10.8)
[2020-01-20 16:32] LABS: ACETAMINOPHEN < 10 ug/mL (10-30); ALBUMIN 4.4 g/dL (3.2-5.5); ALBUMIN/GLOBULIN RATIO 1.7 (1.0-2.2); ALKALINE PHOSPHATASE 25 IU/L (42-121); ALT ALANINE AMINOTRANSFERASE 29 IU/L (10-60); AST ASPARTATE AMINOTRANSFERASE 17 IU/L (10-42); BILIRUBIN,TOTAL 1.1 mg/dL (0.2-1.0); BUN - BLOOD UREA NITROGEN 11 mg/dL (6-20); CALCIUM 9.2 mg/dL (8.5-10.3); CARBON DIOXIDE - CO2 25 mmol/L (21-32); CHLORIDE 99 mmol/L (101-111); CREATININE 0.9 mg/dL (0.6-1.2); GLUCOSE 123 mg/dL (70-100); LIPASE 34 U/L (22-51); SALICYLATE < 6.0 mg/dL; SODIUM 137 mmol/L (135-145)
[2020-01-20] MEDS ORDERED: BUPRENORPHINE 0.3 MG/ML AMP IM ONE (16:52)
[2020-01-20] MEDS ORDERED: BUPRENORPHINE 0.3 MG/ML VIAL IM SCH (17:30)
[2020-01-20 17:53] VITALS: BP 126/66
== END 2020-01-20 18:21 | disposition home or self-care (01) ==
LOC: ED 15:31
DX: F11.23 Opioid dependence with withdrawal (principal); R11.2 Nausea with vomiting, unspecified; R19.7 Diarrhea, unspecified; F17.200 Nicotine dependence, unspecified, uncomplicated
CPT/HCPCS: 36415; 80320; 80329; 83690; 96372; 99283; 99284; A9270; J0592; Q0162; 80053; 80307; 84443; 85025

== ENCOUNTER 2020-03-28 18:40 | Outpatient (CLI) | payer MEDICAID ==
--- NOTE | 2020-03-29 13:51 | Ultrasound Report ---
PROCEDURE: Head or Neck Soft Tissue INDICATIONS: LOW TSH, THYROID NODULE TECHNIQUE: Real-time scanning was performed of the thyroid gland, with image documentation. COMPARISON: None FINDINGS: Right: Thyroid lobe measures 4.8 x 1.2 x 1.6 cm, and is homogeneous in echotexture. Left: Thyroid lobe measures 4.4 x 1.1 x 1.4 cm, and is homogenous in echotexture. Isthmus: 2 mm thick. Thyroid demonstrates no discrete nodule. Gland is overall homogeneous. IMPRESSION: 1. No discrete thyroid nodule. Reviewed by: Holly Abreu MD on 03/29/2020 1:49 PM PST Approved by: Holly Abreu MD on 03/29/2020 1:49 PM PST Station ID: [id number]
== END 2020-03-28 18:41 | disposition home or self-care (01) ==
LOC: DI 18:40
PROVIDERS: ATTEND Physician Assistant
DX: E23.0 Hypopituitarism (principal); E04.1 Nontoxic single thyroid nodule

== ENCOUNTER 2020-08-11 09:16 | Emergency (ER) | payer MEDICAID ==
--- NOTE | 2020-08-11 09:36 | ED Physician Documentation ---
PD HPI ABD PAIN - Stated complaint Stated Complaint: ABD PX - History obtained from History obtained from: Patient - History of Present Illness Timing - onset: How many hours ago (5) Timing - duration: Hours (5) Timing - details: Abrupt onset (about 4 am, awakened from sleep with cramping pain left abdomen.), Still present Quality: Cramping, Aching, Pain Location: LLQ Radiation: Left flank Improved by: Position (feels better bent over and on side.) Worsened by: Moving Associated symptoms: Nausea, Constipation (states no BMs for several days.). No: Fever, Vomiting, Diarrhea, Near syncope / syncope Similar symptoms before: Has not had sx before Recently seen: Not recently seen Review of Systems Constitutional: denies: Fever, Chills Nose: denies: Rhinorrhea / runny nose, Congestion Throat: denies: Sore throat Respiratory: denies: Cough GI: reports: Abdominal Pain, Nausea, Constipation. denies: Abdominal Swelling, Vomiting, Diarrhea : denies: Dysuria, Frequency Skin: denies: Rash, Abrasion (s) PD PAST MEDICAL HISTORY - Past Medical History Cardiovascular: None Respiratory: None Neuro: None Endocrine/Autoimmune: None GI: None : None HEENT: None Psych: None Musculoskeletal: None Derm: None - Past Surgical History Past Surgical History: No - Present Medications Home Medications: Ambulatory Orders Medication Instructions Recorded Confirmed Docusate Sodium 100Mg Capsule 100 mg PO DAILY #15 cap 08/11/20 [Colace 100Mg Capsule] Ibuprofen [Motrin] 600 mg PO TID PRN #20 tab 08/11/20 Propranolol HCl 20 mg DAILY 08/11/20 08/11/20 - Allergies Allergies/Adverse Reactions: Allergies Allergy/AdvReac Type Severity Reaction Status Date / Time Penicillins Allergy Edema Verified 08/11/20 09:39 - Social History Does the pt smoke?: Yes Smoking Status: Current every day smoker Does the pt drink ETOH?: Yes Does the pt have substance abuse?: Yes - Immunizations Immunizations are current?: Yes - POLST Patient has POLST: No PD ED PE NORMAL - Vitals Vital signs reviewed: Yes - General General: Alert and oriented X 3, Well developed/nourished, Other (appears in moderate discomfort.) - HEENT HEENT: Pharynx benign - Neck Neck: Supple, no meningeal sign, No adenopathy - Cardiac Cardiac: RRR, No murmur - Respiratory Respiratory: Clear bilaterally - Abdomen Abdomen: Normal bowel sounds, Soft, Non distended, No organomegaly, Other (tender left abd without percussion nor rebound. Bowel sounds slightly hyperactive. ) - Male Male : Deferred - Rectal Rectal: Deferred - Back Back: No CVA TTP - Derm Derm: Normal color, Warm and dry - Extremities Extremities: No tenderness to palpate, Normal ROM s pain - Neuro Neuro: Alert and oriented X 3, No motor deficit, Normal speech Results - Vitals Vitals: Vital Signs - 24 hr 08/11/20 12:00 Temperature 36.4 C L Heart Rate 56 L Respiratory 16 Rate Blood Pressure 117/82 H O2 Saturation 100 Oxygen O2 Source Room air - Labs Labs: Laboratory Tests 08/11/20 08/11/20 08/11/20 09:30 10:02 10:02 WBC 10.7 RBC 4.77 Hgb 14.0 Hct 41.7 L MCV 87.4 MCH 29.4 MCHC 33.6 RDW 13.1 Plt Count 186 MPV 9.4 Neut # (Auto) 8.6 H Lymph # (Auto) 1.3 L [place] # (Auto) 0.7 Eos # (Auto) 0.0 Baso # (Auto) 0.0 Absolute Nucleated RBC 0.00 Nucleated RBC % 0.0 Sodium 141 Potassium 4.3 Chloride 109 Carbon Dioxide 26 Anion Gap 6.0 BUN 15 Creatinine 0.8 Estimated GFR (MDRD) 116 Glucose 109 H Calcium 8.7 Total Bilirubin 0.7 AST 17 ALT 14 Alkaline Phosphatase 21 L Total Protein 6.4 L Albumin 4.2 Globulin 2.2 Albumin/Globulin Ratio 1.9 Lipase 29 Urine Color YELLOW Urine Clarity CLEAR Urine pH 7.5 Ur Specific [place] 1.020 Urine Protein NEGATIVE Urine Glucose (UA) NEGATIVE Urine Ketones NEGATIVE Urine Occult Blood NEGATIVE Urine Nitrite NEGATIVE Urine Bilirubin NEGATIVE Urine Urobilinogen 0.2 (NORMAL) Ur Leukocyte Esterase NEGATIVE Ur Microscopic Review NOT INDICATED Urine Culture Comments NOT INDICATED - Rads (name of study) abd/pelvic CT Radiology: Prelim report reviewed (no acute process), See rad report PD MEDICAL DECISION MAKING - ED course Complexity details: reviewed results (no signs of acute process. Presume then muscular or just colonic (gas or constipation). ), considered differential (seems considerable pain left abd, with abrupt onset. Consider kidney stone but also splenic issues or even diverticulitis, though less common for younger. ), d/w patient Departure - Departure Disposition: 01 Home, Self Care Clinical Impression: Left sided abdominal pain Condition: Stable Record reviewed to determine appropriate education?: Yes Instructions: ED Abdominal Pain Unkn Cause, ED Strain Abdominal Muscle Follow-Up: JIMMY GABRIEL PA-C [Primary Care Provider] - Prescriptions: Docusate Sodium 100Mg Capsule [Colace 100Mg Capsule] 100 mg PO DAILY #15 cap Ibuprofen [Motrin] 600 mg PO TID PRN #20 tab PRN Reason: Pain Comments: Stay well hydrated. No signs of significant cause on labs/urine/CT scan. Presume muscular pain or potential some intestional pain with constipation or such. I would suggest staying well-hydrated. Use some anti-inflammatory such as ibuprofen 3 times a day with food. To that add Tylenol if needed for pains. Activity as tolerated. Consider also a stool softener such as docusate daily for the next several days to week. Recheck if not improved completely over the next few days and return if worsening or new symptoms develop such as vomiting fever bloody stool or other concerns. Discharge Date/Time: 08/11/20 12:09
[2020-08-11] MEDS ORDERED: MORPHINE 10 MG/ML VIAL IVP STA (09:52)
[2020-08-11] MEDS ORDERED: SODIUM CHLORIDE 0.9% 1,000 ML IV STA ×2 (09:52→11:29)
[2020-08-11] MEDS ORDERED: ONDANSETRON 4 MG/2 ML VIAL IVP STA (09:52)
[2020-08-11] MEDS ORDERED: KETOROLAC 15 MG/ML VIAL IVP STA (09:52)
[2020-08-11] MEDS ORDERED: IOPAMIDOL-300 100 ML VIAL ONE (09:55)
[2020-08-11 10:04] LABS: BILIRUBIN,URINE NEGATIVE (NEGATIVE); GLUCOSE, URINE (UA) NEGATIVE (NEGATIVE); KETONES,URINE (UA) NEGATIVE (NEGATIVE); LEUKOCYTE ESTERASE, URINE NEGATIVE (NEGATIVE); NITRITE,URINE NEGATIVE (NEGATIVE); OCCULT BLOOD,URINE NEGATIVE (NEGATIVE); PH,URINE 7.5 PH (5.0-7.5); PROTEIN,URINE NEGATIVE (NEGATIVE); UROBILINOGEN,URINE 0.2 (NORMAL) E.U./dL (NORMAL)
[2020-08-11 10:06] LABS: CLARITY,URINE CLEAR (CLEAR)
[2020-08-11 10:08] LABS: BASOPHILS % (AUTO) 0.3 %; EOSINOPHILS % (AUTO) 0.4 %; HCT - HEMATOCRIT 41.7 % (42.0-52.0); LYMPHOCYTES # (AUTO) 1.3 10^3/uL (1.5-3.5); LYMPHOCYTES % (AUTO) 12.2 %; MEAN CORPUSCULAR HEMOGLOBIN 29.4 pg (27.0-31.0); MEAN CORPUSCULAR HGB CONC 33.6 g/dL (32.0-36.0); MEAN CORPUSCULAR VOLUME 87.4 fL (80.0-94.0); MEAN PLATELET VOLUME 9.4 fL (7.4-11.4); MONOCYTES # (AUTO) 0.7 10^3/uL (0.0-1.0); MONOCYTES % (AUTO) 6.5 %; NEUTROPHILS # (AUTO) 8.6 10^3/uL (1.5-6.6); NEUTROPHILS % (AUTO) 80.3 %; PLT - PLATELET COUNT 186 10^3/uL (130-450); RED BLOOD COUNT 4.77 10^6/uL (4.70-6.10); RED CELL DISTRIBUTION WIDTH 13.1 % (12.0-15.0); WHITE BLOOD COUNT 10.7 x10^3/uL (4.8-10.8)
[2020-08-11 10:18] LABS: ALBUMIN 4.2 g/dL (3.2-5.5); ALBUMIN/GLOBULIN RATIO 1.9 (1.0-2.2); BILIRUBIN,TOTAL 0.7 mg/dL (0.2-1.0); CALCIUM 8.7 mg/dL (8.5-10.3); CREATININE 0.8 mg/dL (0.6-1.2); POTASSIUM 4.3 mmol/L (3.5-5.0); TOTAL PROTEIN 6.4 g/dL (6.7-8.2)
[2020-08-11] MEDS ORDERED: IOPAMIDOL-300 100 ML VIAL IVP ONE (10:42)
--- NOTE | 2020-08-11 10:50 | CT Report ---
PROCEDURE: Abdomen/Pelvis W INDICATIONS: LLQ Abdominal pain, diverticulitis suspected CONTRAST: IV CONTRAST: Isovue 300 ml: 300 PO CONTRAST: *NO PO CONTRAST TECHNIQUE: After the administration of IV contrast, 5 mm thick sections acquired from the diaphragms to the symp hysis. 5 mm thick coronal and sagittal reformats were acquired. For radiation dose reduction, the f ollowing was used: automated exposure control, adjustment of mA and/or kV according to patient size. COMPARISON: None. FINDINGS: ABDOMEN: Lung bases: Normal Heart:Normal. Liver: Normal. Gallbladder: Negative Bile ducts: Normal. Pancreas: Normal. Spleen: Normal. Adrenals: Normal. Kidneys and ureters: Normal. Stomach and duodenum: Normal. Bowel: Normal. Normal appearance of the appendix. Other: No free fluid or air. Abdominal nodes: Normal. Aorta: Normal. IVC: Normal. Ventral wall: Normal. PELVIS: Bladder: Distended otherwise unremarkable Pelvic nodes: Normal. Inguinal: No hernia. Bones: No vertebral body compression fracture. No suspicious bone lesion. Lumbosacral transitional ve rtebral body is seen with bilateral sacralization, with partial osseous fusion IMPRESSION: No evidence of acute diverticulitis. Normal appendix No acute abnormality as above Reviewed by: Melo Majano MD on 08/11/2020 10:49 AM PDT Approved by: Melo Majano MD on 08/11/2020 10:49 AM PDT Station ID: [id number]
[2020-08-11] MEDS ORDERED: MORPHINE 2 MG/ML CARPUJECT IVP STA (11:26)
[2020-08-11] MEDS ORDERED: DOCUSATE SODIUM 100 MG CAPSULE PO STA (11:29)
[2020-08-11] MEDS ORDERED: ACETAMINOPHEN 325 MG TABLET PO STA (11:29)
[2020-08-11 12:02] VITALS: BP 117/82
== END 2020-08-11 12:09 | disposition home or self-care (01) ==
LOC: ED 09:16
DX: R10.32 Left lower quadrant pain (principal); F17.200 Nicotine dependence, unspecified, uncomplicated
CPT/HCPCS: 36415; 74177; 80053; 81003; 83690; 85025; 96374; 96375; 99284; A9270; Q9967; 81001; 87086

== ENCOUNTER 2021-01-09 17:36 | Emergency (ER) | payer MEDICAID ==
[2021-01-09] MEDS ORDERED: KETOROLAC 60 MG/2 ML VIAL IM STA (18:03)
--- NOTE | 2021-01-09 18:58 | XRAY Report ---
PROCEDURE: Ribs w/PA Chest LT INDICATIONS: L sided rib pain, no trauma TECHNIQUE: 3 views of the left ribs were acquired, along with a single view chest. COMPARISON: Chest radiograph 07/13/2019 FINDINGS: Surgical changes and devices: None. Bones and chest wall: No acute displaced rib fracture. No suspicious bony lesions. Overlying soft ti ssues appear unremarkable. Lungs and pleura: No pleural effusions or pneumothorax. Lungs appear clear. Mediastinum: Mediastinal contours appear normal. Heart size is normal. IMPRESSION: No acute displaced rib fracture. No pneumothorax. Reviewed by: Juan Carlos Gould MD on 01/09/2021 6:57 PM PDT Approved by: Juan Carlos Gould MD on 01/09/2021 6:57 PM PDT Station ID: [id number]
--- NOTE | 2021-01-09 19:05 | ED Physician Documentation ---
History of Present Illness - Stated complaint Stated Complaint: BACK PX/WEAKNESS - Chief complaint Chief Complaint: Back Pain - History obtained from History obtained from: Patient - History of Present Illness Timing: Chronic, Other (2 years) Pain level max: 7 Pain level now: 5 - Additonal information Additional information: Patient is a 30-year-old male who presents to the emergency department with left-sided back pain for the past several years. Worse with movement and better with rest. 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 The pain is in the lower thoracic area to the left side. Has been taking Motrin at home. No numbness or tingling. No loss of bowel or bladder control. No drug use. No fevers. No chills. Review of Systems Ten Systems: 10 systems reviewed and negative Constitutional: denies: Fever, Chills Respiratory: denies: Cough GI: denies: Abdominal Pain, Nausea, Vomiting, Diarrhea : denies: Incontinent Skin: denies: Rash Musculoskeletal: denies: Neck pain Neurologic: denies: Focal weakness, Numbness PD PAST MEDICAL HISTORY - Past Medical History Past Medical History: No Cardiovascular: None Respiratory: None Neuro: None Endocrine/Autoimmune: None GI: None : None HEENT: None Psych: None Musculoskeletal: Chronic back pain Derm: None - Past Surgical History Past Surgical History: No - Present Medications Home Medications: Ambulatory Orders Medication Instructions Recorded Confirmed Meloxicam [Mobic] 1 tablet PO DAILY PRN #30 tab 01/09/21 - Allergies Allergies/Adverse Reactions: Allergies Allergy/AdvReac Type Severity Reaction Status Date / Time Penicillins Allergy Edema Verified 01/09/21 17:44 - Social History Does the pt smoke?: Yes Smoking Status: Current every day smoker Does the pt drink ETOH?: Yes Does the pt have substance abuse?: Yes Substance Use and Type: CBD oil / Products - Immunizations Immunizations are current?: No Immunizations: Other immun not current - POLST Patient has POLST: No PD ED PE NORMAL - Vitals Vital signs reviewed: Yes - General General: Alert and oriented X 3, No acute distress, Well developed/nourished - HEENT HEENT: PERRL, Moist mucous membranes - Neck Neck: Supple, no meningeal sign - Cardiac Cardiac: RRR - Respiratory Respiratory: No respiratory distress, Clear bilaterally - Abdomen Abdomen: Soft, Non tender, Non distended - Back Back: No spinal TTP (tender to palpation over the left posterior ribs, approximately 8 through 11. Mild spasm. No midline tenderness. No crepitus or ecchymosis. Otherwise normal examination of the back) - Derm Derm: Warm and dry - Extremities Extremities: Other (Normal bilateral lower extremity patellar and ankle jerk reflexes. Normal great toe extension bilaterally. no saddle anesthesia) - Neuro Neuro: Alert and oriented X 3 - Psych Psych: Normal mood, Normal affect Results - Vitals Vitals: Vital Signs - 24 hr 01/09/21 01/09/21 01/09/21 17:44 19:11 19:16 Temperature 36.5 C 36.6 C 36.6 C Heart Rate 73 67 65 Respiratory 16 14 15 Rate Blood Pressure 118/56 L 117/64 115/62 O2 Saturation 99 98 99 Oxygen O2 Source Room air - Rads (name of study) Left rib x-ray Radiology: Final report received, EMP read contemporaneously, See rad report (No acute abnormality) PD MEDICAL DECISION MAKING - ED course Complexity details: reviewed results, re-evaluated patient, considered differential, d/w patient ED course: 30-year-old male with left-sided rib/back pain for the past 2 years. No acute findings on x-ray. Feels better after Toradol. Will prescribe meloxicam for home and have him follow-up with his doctor. 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 He has been clean for over a year and we will avoid narcotics and muscle relaxants in this patient. Patient counseled regarding signs and symptoms for which I believe and urgent re-evaluation would be necessary. Patient with good understanding of and agreement to plan and is comfortable going home at this time This document was made in part using voice recognition software. While efforts are made to proofread this document, sound alike and grammatical errors may occur. Departure - Departure Disposition: 01 Home, Self Care Clinical Impression: Acute thoracic myofascial strain Qualifiers: Encounter type: initial encounter Qualified Code(s): S29.019A - Strain of muscle and tendon of unspecified wall of thorax, initial encounter Condition: Good Instructions: ED Neck Back Pain General Follow-Up: JIMMY GABRIEL PA-C [Primary Care Provider] - Prescriptions: Meloxicam [Mobic] 1 tablet PO DAILY PRN #30 tab PRN Reason: Pain Comments: Your prescription was sent to [facility] in [place]. With the [facility], the cost should be around $7.98. Please follow-up with your doctor for further care. Return if you worsen. Discharge Date/Time: 01/09/21 19:16
[2021-01-09 19:17] VITALS: BP 115/62
== END 2021-01-09 19:16 | disposition home or self-care (01) ==
LOC: ED 17:36
DX: S29.019A Strain of muscle and tendon of unspecified wall of thorax, initial encounter (principal); X58.XXXA Exposure to other specified factors, initial encounter; F17.200 Nicotine dependence, unspecified, uncomplicated
CPT/HCPCS: 96372; 99283; 99284

== ENCOUNTER 2021-09-20 05:15 | Emergency (ER) | payer MEDICAID ==
[2021-09-20 05:25] VITALS: BP 130/69
--- NOTE | 2021-09-20 05:55 | ED Physician Documentation ---
PD HPI LOWER EXT INJURY - Stated complaint Stated Complaint: R PINKY TOE INJ - Chief complaint Chief Complaint: Ext Problem - History obtained from History obtained from: Patient - History of Present Illness PD HPI LOW EXT INJURY LOCATION: Right, Toe (5th) Type of injury: Blunt / blow Where injury occurred: Home Timing - onset: How many days ago (5) Timing - duration: Days (5) Timing - details: Abrupt onset, Still present Improved by: Rest, Immobilization Worsened by: Moving, Palpating Associated symptoms: Swelling. 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 He had immediate swelling and erythema to the area and the swelling persisted and worsened the discoloration resolved and the patient's pain worsened as he continued to work. Review of Systems Constitutional: denies: Fever Respiratory: denies: Cough GI: denies: Nausea, Vomiting Musculoskeletal: reports: Joint pain, Pain with weight bearing Neurologic: denies: Generalized weakness, Focal weakness, Numbness PD PAST MEDICAL HISTORY - Past Medical History Past Medical History: Yes Cardiovascular: None Respiratory: None Neuro: None Endocrine/Autoimmune: None GI: None : None HEENT: None Psych: None Musculoskeletal: Chronic back pain Derm: None - Past Surgical History Past Surgical History: No - Allergies Allergies/Adverse Reactions: Allergies Allergy/AdvReac Type Severity Reaction Status Date / Time Penicillins Allergy Edema Verified 09/20/21 05:25 - Social History Does the pt smoke?: Yes Smoking Status: Current every day smoker Does the pt drink ETOH?: Yes Does the pt have substance abuse?: Yes - Immunizations Immunizations are current?: No Immunizations: Other immun not current - POLST Patient has POLST: No PD ED PE NORMAL - Vitals Vital signs reviewed: Yes (Normal) - General General: Alert and oriented X 3, No acute distress, Well developed/nourished - HEENT HEENT: Atraumatic, PERRL, EOMI - Respiratory Respiratory: No respiratory distress - Derm Derm: Normal color, Warm and dry, No rash - Extremities Extremities: No deformity, Other (Swelling and point tenderness to the right fifth digit distally without drainage or lymphangitic streaking.) - Neuro Neuro: Alert and oriented X 3, 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, No motor deficit, No sensory deficit, Normal speech Eye Opening: Spontaneous Motor: Obeys Commands Verbal: Oriented GCS Score: 15 - Psych Psych: Normal mood, Normal affect Results - Vitals Vitals: Vital Signs - 24 hr 09/20/21 05:23 Temperature 36.4 C L Heart Rate 76 Respiratory 16 Rate Blood Pressure 130/69 O2 Saturation 98 Oxygen O2 Source Room air - Rads (name of study) Toes Radiology: Prelim report reviewed PD MEDICAL DECISION MAKING - ED course Complexity details: reviewed results, re-evaluated patient, considered differential, d/w patient ED course: 31-year-old male with an injury to his right small toe has no evidence of fracture on plain film and he is placed into a postop shoe with some metatarsal padding. This does help. Departure - Departure Disposition: 01 Home, Self Care Clinical Impression: Contusion of fifth toe, right Qualifiers: Encounter type: initial encounter Qualified Code(s): S90.121A - Contusion of right lesser toe(s) without damage to nail, initial encounter Condition: Stable Instructions: ED Contusion Lower Ext Follow-Up: Matthew Morton DO [Provider Admit Priv/Credential] - Comments: Duarte, it looks like you have sprained your toe and continued to walk on it and it inflamed. Use the metatarsal padded shoe for comfort and expect resolution within 2 weeks.
--- NOTE | 2021-09-20 10:03 | XRAY Report ---
PROCEDURE: Foot 3 View RT INDICATIONS: PAIN/SWELLING/REDNESS/CRUSH INJURY R FOOT TECHNIQUE: 3 views of the foot were acquired. COMPARISON: None FINDINGS: Bones: No fractures or dislocations. No suspicious bony lesions. Soft tissues: No tibiotalar joint effusion. Achilles tendon appears normal. IMPRESSION: No visualized acute fracture or dislocation. However, occult injury cannot be excluded. Recommend kristi rt interval imaging follow-up in 7-10 days as clinically indicated for additional evaluation. The above findings are concordant with preliminary report. Reviewed by: Holly Abreu MD on 09/20/2021 10:01 AM PDT Approved by: Holly Abreu MD on 09/20/2021 10:01 AM PDT Station ID: [id number]
== END 2021-09-20 06:05 | disposition home or self-care (01) ==
LOC: ED 05:15
DX: S90.121A Contusion of right lesser toe(s) without damage to nail, initial encounter (principal); W20.8XXA Other cause of strike by thrown, projected or falling object, initial encounter; Y92.009 Unspecified place in unspecified non-institutional (private) residence as the place of occurrence of the external cause; F17.200 Nicotine dependence, unspecified, uncomplicated
CPT/HCPCS: 99282; 99283

== ENCOUNTER 2021-12-20 14:14 | Emergency (ER) | payer MEDICAID ==
[2021-12-20 14:22] VITALS: BP 125/62
--- NOTE | 2021-12-20 15:10 | ED Physician Documentation ---
History of Present Illness - Stated complaint Stated Complaint: FACE SWOLLEN - Chief complaint Chief Complaint: Heent - Additonal information Additional information: 31-year-old male presents emergency department for evaluation of right-sided facial swelling and tooth pain. Reports seen at a dentist a number of weeks ago for tooth pain and was prescribed clindamycin. He does have an allergy to penicillin. He did not finish the course of antibiotics because he was feeling better. Over the last 2 days he started to have worsening pain and now facial swelling though no trismus. No fevers. He took 1 tablet of the leftover clindamycin today. Scheduled to see dentistry in February to have the tooth removed Review of Systems Constitutional: denies: Fever, Chills Ears: reports: Reviewed and negative Nose: reports: Reviewed and negative Throat: reports: Dental pain / toothache, Other (Right-sided facial swelling) Cardiac: reports: Reviewed and negative Respiratory: reports: Reviewed and negative PD PAST MEDICAL HISTORY - Past Medical History Cardiovascular: None Respiratory: None Neuro: None Endocrine/Autoimmune: None GI: None : None HEENT: None Psych: None Musculoskeletal: Chronic back pain Derm: None - Past Surgical History Past Surgical History: No - Present Medications Home Medications: Ambulatory Orders Medication Instructions Recorded Confirmed clindamycin HCL [Clindamycin HCl] 300 mg PO QID #28 cap 12/20/21 - Allergies Allergies/Adverse Reactions: Allergies Allergy/AdvReac Type Severity Reaction Status Date / Time Penicillins Allergy Edema Verified 12/20/21 14:17 - Social History Does the pt smoke?: Yes Smoking Status: Current every day smoker Does the pt drink ETOH?: Yes Does the pt have substance abuse?: Yes - Immunizations Immunizations are current?: No Immunizations: Other immun not current - POLST Patient has POLST: No PD ED PE EXPANDED - General General: Alert, No acute distress - HEENT HEENT: Other (Tooth #5 generally tender to palpation though obvious decay or abscess. No gumline swelling or fluctuance. Mild amount of right-sided facial swelling just to the nasolabial fold. No erythema. No trismus. Uvula midline. No posterior oropharynx erythema. Normal swallow and phonation) Results - Vitals Vitals: Vital Signs - 24 hr 12/20/21 14:18 Temperature 36.5 C Heart Rate 72 Respiratory 16 Rate Blood Pressure 125/62 O2 Saturation 98 Oxygen O2 Source Room air PD MEDICAL DECISION MAKING - ED course Complexity details: considered differential, d/w patient ED course: 31-year-old male presents emergency department for evaluation of worsening tooth pain. Tooth #5 was seen by dentist number weeks ago and patient was presumptively started clindamycin for dental abscess. He stopped after a few days because he felt better and now the symptoms have returned with some associated facial swelling. Clinically there is no trismus. Patient will be resumed on clindamycin given history of penicillin allergy. Also recommend warm salt water rinse. Emergent return precautions were discussed for worsening facial swelling, trismus fevers or swelling of the eyes. Patient is scheduled to see dentistry in February to have the tooth formally removed. Departure - Departure Disposition: Home, Self Care Clinical Impression: Dental abscess, Right facial swelling Condition: Stable Record reviewed to determine appropriate education?: Yes Instructions: ED Abscess Dental Prescriptions: clindamycin HCL [Clindamycin HCl] 300 mg PO QID #28 cap Comments: [place] you do have a dental abscess. We need to resume you on the course of clindamycin. Please complete the full course of antibiotics at this time. I do recommend warm salt water rinses 3 times a day. Important you continue to follow-up with a dentist in February as already scheduled to have that tooth removed. I would expect with the antibiotics that you are having improved pain and swelling over about the next 72 hours. If at any point you find that the symptoms are worsening, you are unable to fully open your mouth, swallow or talk normally then you should return immediately to the ER for a second evaluation
== END 2021-12-20 15:21 | disposition home or self-care (01) ==
LOC: ED 14:14
DX: K04.7 Periapical abscess without sinus (principal); R22.0 Localized swelling, mass and lump, head; F17.200 Nicotine dependence, unspecified, uncomplicated
CPT/HCPCS: 99282